=== PATIENT | male | born 1980 | race Caucasian/White ===

== ENCOUNTER 2024-08-14 13:46 | Emergency (ER) | payer OTHER, SELFPAY ==
[2024-08-14 13:49] VITALS: BP 152/87
--- NOTE | 2024-08-14 14:00 | ED.GENMED ---
History of Present Illness
General
Chief Complaint: Back Pain
Time Seen by Provider: 08/14/24 13:59
History of Present Illness
History of Present Illness:
TIME OF INITIAL EVALUATION
- 2:05 PM
REVIEW OF OLD RECORDS
- The patient has a history of chronic low back pain and has had discectomy in the past. He also has a history of high blood pressure. I reviewed records, the patient did have an L-spine x-ray that showed some degenerative changes as of September
2022.
CHIEF COMPLAINT(S)
Chronic back pain with new onset left-sided pain.
HISTORY OF PRESENT ILLNESS
The patient is a 44-year-old male with a history of chronic back pain who presents with exacerbation of symptoms and new left-sided pain. The patients medical history is significant for a discectomy performed in 2009 at [place] due to severe back
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 The surgery was initially successful, alleviating his symptoms significantly. However, over the past few years, he reports becoming lax with physical therapy and
has been managing his pain primarily with steroid injections administered at a [facility] facility. Notably, two years ago during a procedure, a needle incident led to worsened symptoms.
Recently, the patient describes severe muscle spasms and his bones feeling as if they need to 'snap back into place.' A new, intense pain on the left side feels like something is trying to pop back into place, leading to extreme soreness and
sensation kayden to being kicked. Last year, the patient underwent an X-ray at [place], which revealed degenerative changes but no significant findings. The patient reports being in constant intense pain.
During the examination, strength tests of the lower limbs showed adequate power. Palpation revealed mild tenderness in the sacral area. The patient mentioned experiencing bone sounds and sensations, raising suspicion of spondylolisthesis. He has a
scheduled MRI for October 23 and is currently followed by a primary care physician.
MEDICATIONS
No regular medications were specifically mentioned. The patient expresses willingness to try both gabapentin and a steroid medication for relief.
PHYSICAL EXAM
-General: Well appearing in no significant distress
-HEENT: Moist oral mucosa
-Neurologic: Excellent strength all extremities, no obvious coordination deficits, perhaps slightly decreased L4 reflexes bilaterally however he has good strength in an L5 and S1 distribution bilaterally
-Psychiatric: Appropriate mental status, normal insight and judgement
-Extremities: Nontender, no edema, moves all extremities equally
-Skin: No rash, no lesions
-Back: There is no significant L spine tenderness in the midline but he does have some midline sacral tenderness
PLAN
- Administer an immediate dose of steroid medication to manage inflammation.
- Administer a dose of gabapentin to address possible neuropathic pain.
- Obtain an X-ray to evaluate for any significant spondylolisthesis or other changes.
- Follow-up as necessary with primary care, with a planned MRI already scheduled.
DIFFERENTIAL DIAGNOSIS
The Differential Diagnosis includes, in no particular order and is not limited to:
1. Lumbar spondylolisthesis
2. Facet joint syndrome
3. Disc herniation
4. Spinal stenosis
5. Sacroiliac joint dysfunction
6. Lumbar muscle spasm
7. Radiculopathy
8. Degenerative disk disease
9. Neuropathic pain syndrome
10. Paraspinal muscle strain or injury
RADIOLOGY
- X-ray L-spine and sacrum obtained which showed degenerative changes
EKG
- Not indicated
LABS
- Not indicated
UPDATE
-SUMMARY OF ENCOUNTER
The patient, a 44-year-old male, was seen for chronic back pain with a new onset of left-sided pain. There was a concern regarding a possible shift in spinal alignment; however, the x-ray results reviewed by the radiologist showed no signs of
spondylolisthesis or retrolisthesis, and spinal alignment appeared normal. Degenerative changes were noted. In the emergency department, the patient received doses of dexamethasone and gabapentin, along with cyclobenzaprine. The patient is scheduled
for an MRI, which was ordered by the primary care physician.
ASSESSMENT
The primary concern is chronic back pain with potential neurological implications as suggested by the new left-sided pain.
EMERGENCY TREATMENTS ADMINISTERED
Doses of dexamethasone, gabapentin, and cyclobenzaprine were administered.
PLAN
The patient was provided with prescriptions for additional dexamethasone and gabapentin. Follow-up with a chiropractor on Sunday was planned. The patient is advised to continue with the scheduled MRI.
INDEPENDENT REVIEW OF LABS AND INTERPRETATION OF TESTS
My independent interpretation of the x-ray revealed no significant spondylolisthesis or retrolisthesis, but degenerative changes were present.
FOLLOW-UP INSTRUCTIONS
The patient is advised to follow up with a chiropractor and the scheduled MRI is to proceed. No immediate referral to a learning operations specialist is necessary unless MRI results indicate such a need.
MEDICATION RECONCILIATION
Prescriptions for dexamethasone and gabapentin were provided. Cyclobenzaprine was administered in the ED.
MEDICAL DECISION MAKING
-Complexity of Data Reviewed: Chronic conditions affecting care include a history of chronic back pain and previous discectomy. The differential diagnosis includes lumbar spondylolisthesis, facet joint syndrome, disc herniation, spinal stenosis,
sacroiliac joint dysfunction, lumbar muscle spasm, radiculopathy, degenerative disk disease, neuropathic pain syndrome, and paraspinal muscle strain or injury.
-Data:
Category 1:
Reviewed imaging results showing degenerative changes without spondylolisthesis or retrolisthesis.
Category 2:
No additional input from independent historians was available.
Category 3:
No management discussions with other providers occurred during this visit.
-Risk: Prescription medication was prescribed. Given the presence of chronic pain, consideration of admission was not deemed necessary, as outpatient management was deemed appropriate, and the patient is reliable for follow-up.
DIAGNOSIS
- Chronic Back Pain (ICD-10: M54.5)
- Degenerative Changes of the Spine (ICD-10: M47.812)
Phy Exam
Physical Exam
Physical Exam:
See HPI
Course
Orders/Labs/Results
Orders:
Orders
08/14/24 14:13
Gabapentin [Neurontin] 300 mg PO NOW STA
Prednisone [Deltasone] 50 mg PO NOW STA
CR Lumbar Spine Comp Min 4 Vw* Urgent
Comment:
Reason For Exam: increased low back pain
CR Sacrum/coccyx Min 2 View Urgent
Comment:
Reason For Exam: pain
08/14/24 16:46
Cyclobenzaprine HCl [Flexeril] 10 mg .ROUTE .STK-MED ONE
08/14/24 16:48
Cyclobenzaprine HCl [Flexeril] 10 mg PO NOW STA
Vital Signs
Initial and Last Documented VS:
Initial Vital Signs
Temp Pulse Resp BP Pulse Ox
36.6 C 111 18 152/87 98
08/14/24 13:49 08/14/24 13:49 08/14/24 13:49 08/14/24 13:49 08/14/24 13:49
Last Documented Vital Signs
Temp Pulse Resp BP Pulse Ox
36.6 C 111 18 152/87 98
08/14/24 13:49 08/14/24 13:49 08/14/24 13:49 08/14/24 13:49 08/14/24 14:01
*Pulse Oximetry
SaO2: 98
Oxygen Mode of Delivery: Room air
Patient hypoxic: no
*Critical Care Note
Total Time (30-74mins, 75-104mins- exclusive of procedures): Not Applicable
ED Attending Note
-
Portions of this chart may have been created with voice recognition software.� Occasional wrong word or��sound alike� substitutions may have occurred due to the inherent limitations of voice recognition software.
Discharge Plan
Departure
Patient Disposition: Home (Routine Discharge)
Date of Disposition: 08/14/24
Time of Disposition: 17:10
Patient with high blood pressure during this ER visit?: Yes
Discharge Problem:
Low back pain
Instructions: Low Back Pain (DC), BLOOD PRESSURE
Prescriptions:
New
gabapentin 300 mg capsule
300 mg PO TID Qty: 42 0RF
prednisone 50 mg tablet
50 mg PO DAILY Qty: 4 0RF
Referrals:
Cornelius Katz PA-C [Family Provider, [facility]]
Activity Restrictions/Additional Instructions:
Lumbar spine:
5 nonrib-bearing lumbar-type vertebral bodies. Straightening of the normal lumbar lordosis. Severe disc space narrowing at L4-L5 with degenerative endplate sclerosis. Moderate to severe disc space narrowing at L5-S1. No significant spondylolisthesis.
4 mm rounded calcification overlying the right kidney suspicious for a small renal calculus. Questioned tiny left renal calculi as well.
Sacrum/coccyx:
The sacrum and coccyx are intact. The bilateral sacroiliac joint alignments are maintained no abnormal joint space widening, erosion, ankylosis, or subchondral sclerosis.
IMPRESSION:
1. Degenerative disc disease at L4-L5 and L5-S1.
2. Nephrolithiasis.
Interventions
Interventions:
*Risk Screen - Suicide Last Done: 08/14/24 14:10
*General Assessment Last Done: 08/14/24 13:49
*Neglect/Abuse Screening Last Done: 08/14/24 13:49
ED-Musculoskeletal Assessment Last Done: 08/14/24 15:07
Discharge Date and Time
Print Language: SWEDISH
[2024-08-14] MEDS: DELTASONE 50 MG PO (14:39)
[2024-08-14] MEDS: NEURONTIN 300 MG PO (14:40)
[2024-08-14] MEDS: FLEXERIL 10 MG PO (16:48)
== END 2024-08-14 17:30 | disposition home or self-care (01) ==
LOC: EMR 13:46
PROVIDERS: EMERGENCY PHYSICIAN Emergency Medicine; FAMILY PHYSICIAN Physician Assistant Medical
DX: M54.50 Low back pain, unspecified (principal)
CPT/HCPCS: 99283; 72110; 72220

== ENCOUNTER → 2024-09-24 17:20 | Outpatient (REF) | payer OTHER, SELFPAY | LOC: MRI 3T 17:20 | PROVIDERS: ATTENDING PHYSICIAN Nurse Practitioner Family | DX: M54.40 Lumbago with sciatica, unspecified side (principal) | CPT/HCPCS: 72158; A9575 ==